=== PATIENT | male | born 1960 | race Caucasian/White ===

== ENCOUNTER 2017-06-12 09:03 | Day surgery (SDC) | payer OTHER ==
[2017-06-11 14:45] VITALS: BMI 30.8
[2017-06-12] MEDS ORDERED: ePHEDrine SULFATE 50 MG/1 ML AMPULE ONE (09:57)
[2017-06-12 10:38] VITALS: TEMP 98.7
[2017-06-12 11:12] VITALS: BP 108/80; PULSE 72
== END 2017-06-12 11:13 | disposition home or self-care (01) ==
LOC: JASU-ENDO 09:03
PROVIDERS: ATTEND Internal Medicine Gastroenterology
PROC: 0DJD8ZZ Inspection of Lower Intestinal Tract, Via Natural or Artificial Opening Endoscopic (ICD-10-PCS; principal; 2017-06-12 10:00)
DX: Z12.11 Encounter for screening for malignant neoplasm of colon (principal); Z80.0 Family history of malignant neoplasm of digestive organs; I10 Essential (primary) hypertension; K57.30 Diverticulosis of large intestine without perforation or abscess without bleeding; K64.8 Other hemorrhoids